=== PATIENT | male | born 1970 | race Hispanic/Latino ===

== ENCOUNTER → 2025-03-28 | Outpatient (REF) | payer BC ==
[~2025-03-28] MED LIST: AMBIEN10 MG PO; CIALIS20 MG PO; LISINOPRIL10 MG PO; METFORMIN HCL500 MG PO; MOUNJARO15 MG/0.5 INJ; ZOLOFT100 MG PO
== END ==
LOC: RAD 15:37 → EDSTATUS 04-07 18:00
PROVIDERS: ATTEND Internal Medicine Gastroenterology
DX: Z01.818 Encounter for other preprocedural examination (principal); Z12.11 Encounter for screening for malignant neoplasm of colon
CPT/HCPCS: 93005

== ENCOUNTER → 2025-05-05 | Day surgery (SDC) | payer BC ==
[~2025-05-05] MED LIST changes: +LIDOCAINE HCL 2% LOCAL INJ 5 ML SDV VIAL INJ ONE; +MIDAZOLAM HCL 2 MG/2 ML VIAL ONE; +PROPOFOL IV EMULSION 10 MG/ML 20 ML VIAL ONE
[2025-05-05 09:34] VITALS: TEMP 98.1
[2025-05-05 10:05] VITALS: BP 113/72; PULSE 88; RESP 16; O2SAT 98
[2025-05-05] MEDS: ONDANSETRON HCL INJ 2MG/ML 2ML 2 MG/ML VIAL ONE (10:42)
[2025-05-05] MEDS: LACTATED RINGER'S 1,000 ML ONE (10:48)
== END | disposition home or self-care (01) ==
LOC: OR 07:39
PROVIDERS: ATTEND Internal Medicine Gastroenterology
DX: Z12.11 Encounter for screening for malignant neoplasm of colon (principal); D12.2 Benign neoplasm of ascending colon; D12.5 Benign neoplasm of sigmoid colon; K64.8 Other hemorrhoids; E11.9 Type 2 diabetes mellitus without complications; I10 Essential (primary) hypertension; F32.A Depression, unspecified; I45.10 Unspecified right bundle-branch block; Z88.1 Allergy status to other antibiotic agents; Z79.84 Long term (current) use of oral hypoglycemic drugs; Z79.85 Long-term (current) use of injectable non-insulin antidiabetic drugs; Z79.899 Other long term (current) drug therapy; Z68.30 Body mass index [BMI] 30.0-30.9, adult; Z80.0 Family history of malignant neoplasm of digestive organs
CPT/HCPCS: 36415; 45384; 82948; J2003; J2250; J2405; J2704; J7121